=== PATIENT | female | born 1970 | race Caucasian/White ===

== ENCOUNTER 2021-08-06 12:31 | Emergency (ER) | payer OTHER ==
[2021-08-06 15:27] LABS: BASOPHIL 0.3 % (0-2); EOSINOPHIL 0.1 % (0-5); HCT 40.4 % (37.0-47.0); HGB 12.9 g/dl (12.5-16.0); LYMPHOCYTE 17.5 % (15-48); MCH 28.5 pg (25.0-31.0); MCHC 31.9 g/dL (32.0-36.0); MCV 89.2 fL (78.0-100.0); MONOCYTE 8.7 % (0-12); MPV 11.3 fL (6.0-9.5); NEUTROPHIL 72.7 % (41-80); NRBC 0; PLT 385 K/uL (150-400); RBC 4.53 M/uL (4.20-5.40); RDW 13.8 % (11.5-14.0); WBC 12.3 K/uL (4.0-10.5)
[2021-08-06 15:51] LABS: ALBUMIN 3.6 g/dL (3.4-5.0); BILIRUBIN - TOTAL 0.1 mg/dL (0.2-1.0); BUN/CREAT RATIO (CALC) 15.1 RATIO; CREATININE 0.86 mg/dL (0.51-0.95); GLOBULIN (CALCULATION) 3.1 g/dL; POTASSIUM 3.4 mmol/L (3.5-5.1); TOTAL PROTEIN 6.7 g/dL (6.4-8.2)
[2021-08-06] MEDS ORDERED: ONDANSETRON ODT4 MG PO (17:50)
== END 2021-08-06 18:00 | disposition home or self-care (01) ==
LOC: FER 12:31
PROVIDERS: Internal Medicine
DX: U07.1 COVID-19 (principal); D86.9 Sarcoidosis, unspecified; Z88.2 Allergy status to sulfonamides
CPT/HCPCS: 36415; 71046; 80053; 84484; 85025; M0243; Q0244